=== PATIENT | female | born 1940 | race Caucasian/White ===

== ENCOUNTER 2023-11-14 17:20 | Inpatient (IN) | payer MEDICARE ==
[~2023-11-14] VITALS: Ht 162.6 cm; Wt 84.8 kg
[2023-11-14] MEDS ORDERED: MORPHINE SULFATE 2 MG/1 ML DISP.SYRIN IV ONE (18:15)
[2023-11-14] MEDS ORDERED: ONDANSETRON 4 MG/2 ML VIAL IV ONE (18:15)
[2023-11-14 18:46] LABS: CALCIUM 9.4 mg/dL (8.5-10.1); CREATININE 0.9 mg/dL (0.6-1.3); POTASSIUM 3.6 mmol/L (3.5-5.1)
[2023-11-14 18:47] LABS: BASOPHILS # (AUTO) 0.1 K/UL (0.0-0.2); BASOPHILS % (AUTO) 0.5 % (0.0-2.0); EOSINOPHILS % (AUTO) 0.2 % (0.0-7.0); HEMATOCRIT 46.2 % (31.2-41.9); HEMOGLOBIN 15.1 g/dL (10.9-14.3); LYMPHOCYTES # (AUTO) 0.6 K/uL (0.8-4.8); LYMPHOCYTES % (AUTO) 4.6 % (20.5-51.5); MEAN CORPUSCULAR HEMOGLOBIN 30.1 uug (24.7-32.8); MEAN CORPUSCULAR HGB CONC 33 g/dL (32.3-35.6); MEAN CORPUSCULAR VOLUME 92.2 fL (75.5-95.3); MONOCYTES # (AUTO) 0.4 K/uL (0.1-1.30); NEUTROPHILS # (AUTO) 12.8 K/uL (1.8-8.9); NEUTROPHILS % (AUTO) 91.7 % (38.5-71.5); PLATELET COUNT (AUTO) 242 K/uL (179-408); RED BLOOD CELL COUNT(AUTO) 5.01 MIL/uL (3.63-4.92); RED CELL DISTRIBUTION WIDTH 14.2 % (12.3-17.7)
[2023-11-14 18:55] LABS: DIFFERENTIAL COMMENT 1
[2023-11-14 18:57] LABS: ALBUMIN 3.3 g/dL (3.4-5.0); BILIRUBIN,DIRECT 0.2 mg/dL (0.0-0.2); BILIRUBIN,TOTAL 0.5 mg/dL (0.2-1.0); TOTAL PROTEIN, SERUM 7.9 g/dL (6.4-8.2)
[2023-11-14] MEDS ORDERED: HYDROMORPHONE 1 MG/1 ML DISP.SYRIN IV ONE ×2 (19:00→20:30)
[2023-11-14] MEDS ORDERED: ONDANSETRON 4 MG/2 ML VIAL ONE (19:25)
[2023-11-14] MEDS ORDERED: HYDROMORPHONE 1 MG/1 ML DISP.SYRIN ONE ×2 (19:26→21:21)
[2023-11-14] MEDS ORDERED: CLONIDINE HCL 0.1 MG TABLET PO ONE (20:15)
[2023-11-14] MEDS ORDERED: CLONIDINE HCL 0.1 MG TABLET ONE (20:20)
[2023-11-14] MEDS ORDERED: MORPHINE SULFATE 2 MG/1 ML DISP.SYRIN IV PRN (21:00)
[2023-11-14] MEDS ORDERED: MAGNESIUM HYDROXIDE 30 ML LIQUID UDC PO PRN (21:00)
[2023-11-14] MEDS ORDERED: ACETAMINOPHEN 325 MG TABLET PO PRN (21:00)
[2023-11-14] MEDS ORDERED: REMEDY ESSENTIAL ZINC PASTE 113 GM TP PRN (21:00)
[2023-11-14] MEDS ORDERED: DOCUSATE SODIUM 100 MG CAPSULE PO ONE (22:34)
[2023-11-15] MEDS ORDERED: ONDANSETRON 4 MG/2 ML VIAL ONE ×2 (04:45→11:41)
[2023-11-15] MEDS ORDERED: ONDANSETRON 4 MG/2 ML VIAL IV PRN (04:45)
[2023-11-15] MEDS ORDERED: DOCUSATE SODIUM 100 MG CAPSULE PO ONE (04:45)
[2023-11-15] MEDS ORDERED: HYDROMORPHONE 1 MG/1 ML DISP.SYRIN IV PRN (04:45)
[2023-11-15] MEDS ORDERED: HYDROMORPHONE 1 MG/1 ML DISP.SYRIN ONE (04:46)
[2023-11-15] MEDS: DOCUSATE SODIUM 250 MG CAPSULE PO SCH ×2 (04:54→21:00)
[2023-11-15] MEDS: ONDANSETRON 4 MG/2 ML VIAL IV PRN ×2 (05:42→11:51)
[2023-11-15 06:30] LABS: BASOPHILS # (AUTO) 0.1 K/UL (0.0-0.2); BASOPHILS % (AUTO) 0.7 % (0.0-2.0); EOSINOPHILS % (AUTO) 0.3 % (0.0-7.0); HEMATOCRIT 41.2 % (31.2-41.9); HEMOGLOBIN 13.6 g/dL (10.9-14.3); LYMPHOCYTES # (AUTO) 1.4 K/uL (0.8-4.8); LYMPHOCYTES % (AUTO) 10.5 % (20.5-51.5); MEAN CORPUSCULAR HEMOGLOBIN 30.7 uug (24.7-32.8); MEAN CORPUSCULAR HGB CONC 33 g/dL (32.3-35.6); MEAN CORPUSCULAR VOLUME 93.3 fL (75.5-95.3); MONOCYTES # (AUTO) 1.1 K/uL (0.1-1.30); MONOCYTES % (AUTO) 7.8 % (0.0-11.0); NEUTROPHILS % (AUTO) 80.7 % (38.5-71.5); PLATELET COUNT (AUTO) 216 K/uL (179-408); RED BLOOD CELL COUNT(AUTO) 4.42 MIL/uL (3.63-4.92); RED CELL DISTRIBUTION WIDTH 13.9 % (12.3-17.7); WHITE BLOOD COUNT (AUTO) 13.7 K/uL (3.8-11.8)
[2023-11-15 06:46] LABS: CARBON DIOXIDE 26 mmol/L (21-32); CHLORIDE 105 mmol/L (98-107); CREATININE 0.9 mg/dL (0.6-1.3); DIFFERENTIAL COMMENT 1; GLUCOSE 167 mg/dL (74-106); PHOSPHOROUS 4.3 mg/dL (2.5-4.9); POTASSIUM 4.1 mmol/L (3.5-5.1); SODIUM SERUM 140 mmol/L (136-145); UREA NITROGEN, BLOOD 20 mg/dL (7-18)
[2023-11-15] MEDS ORDERED: MORPHINE SULFATE 2 MG/1 ML DISP.SYRIN ONE ×3 (11:42→20:38)
[2023-11-15] MEDS: MORPHINE SULFATE 2 MG/1 ML DISP.SYRIN IV PRN ×3 (11:52→20:42)
[2023-11-15] MEDS ORDERED: ASPIRIN 325 MG TABLET PO ONE (13:30)
[2023-11-15] MEDS ORDERED: ASPIRIN 325 MG TABLET ONE (14:51)
[2023-11-15] MEDS ORDERED: ACETAMINOPHEN 325 MG TABLET ONE (15:04)
[2023-11-15] MEDS ORDERED: MORPHINE SULFATE 4 MG/1 ML DISP.SYRIN ONE (20:35)
[2023-11-16] MEDS ORDERED: MORPHINE SULFATE 2 MG/1 ML DISP.SYRIN ONE ×2 (00:54→06:14)
[2023-11-16] MEDS: MORPHINE SULFATE 2 MG/1 ML DISP.SYRIN IV PRN ×2 (01:03→06:25)
[2023-11-16] MEDS ORDERED: MIDAZOLAM HCL 2 MG/2 ML VIAL ONE (07:59)
[2023-11-16] MEDS ORDERED: FENTANYL CITRATE 250 MCG/5 ML AMPUL ONE (07:59)
[2023-11-16] MEDS ORDERED: ROCURONIUM BROMIDE 50 MG/5 ML VIAL ONE (08:00)
[2023-11-16] MEDS ORDERED: HYDROMORPHONE 2 MG/1 ML DISP.SYRIN ONE (08:00)
[2023-11-16] MEDS ORDERED: FAMOTIDINE. 20 MG/2 ML VIAL IV ONE (08:00)
[2023-11-16 08:04] LABS: *BLOOD, URINE 2+ (NEGATIVE); *CLARITY,URINE CLEAR (CLEAR); *COLOR,URINE YELLOW (YELLOW); *KETONES,URINE NEGATIVE (NEGATIVE); *PROTEIN,URINE 1+ (NEGATIVE); LEUKOCYTE ESTERASE ,URINE NEGATIVE (NEGATIVE); NITRITE, URINE NEGATIVE (NEGATIVE); PH,URINE 5.5 (5.0-8.0); UGLUCOSE NEGATIVE (NEGATIVE)
[2023-11-16 08:09] LABS: *BILIRUBIN,URIN 1+ (NEGATIVE)
[2023-11-16 08:12] LABS: BASOPHILS % (AUTO) 0.4 % (0.0-2.0); EOSINOPHILS # (AUTO) 0.1 K/uL (0.0-0.7); EOSINOPHILS % (AUTO) 1.4 % (0.0-7.0); HEMATOCRIT 42.4 % (31.2-41.9); LYMPHOCYTES % (AUTO) 9.1 % (20.5-51.5); MEAN CORPUSCULAR HEMOGLOBIN 30.8 uug (24.7-32.8); MEAN CORPUSCULAR HGB CONC 33 g/dL (32.3-35.6); MEAN CORPUSCULAR VOLUME 93.7 fL (75.5-95.3); MONOCYTES % (AUTO) 9.3 % (0.0-11.0); NEUTROPHILS # (AUTO) 8.4 K/uL (1.8-8.9); NEUTROPHILS % (AUTO) 79.8 % (38.5-71.5); PLATELET COUNT (AUTO) 199 K/uL (179-408); RED BLOOD CELL COUNT(AUTO) 4.53 MIL/uL (3.63-4.92); RED CELL DISTRIBUTION WIDTH 14.1 % (12.3-17.7); WHITE BLOOD COUNT (AUTO) 10.5 K/uL (3.8-11.8)
[2023-11-16 08:16] LABS: BACTERIA,URINE NONE SEEN /HPF (NONE SEEN); SQUAMOUS EPITHELIAL CELL,UR FEW /HPF (NONE SEEN)
[2023-11-16 08:17] LABS: DIFFERENTIAL COMMENT 1
[2023-11-16 08:21] LABS: POTASSIUM 4.4 mmol/L (3.5-5.1)
[2023-11-16] MEDS: ASPIRIN 81 MG TAB.CHEW PO SCH (09:00)
[2023-11-16] MEDS ORDERED: VANCOMYCIN 1000 MG VIAL ONE (09:43)
[2023-11-16] MEDS ORDERED: LIDOCAINE-MPF 2% 5 ML VIAL ONE (10:13)
[2023-11-16] MEDS ORDERED: PROPOFOL 200 MG/20 ML BOTTLE ONE (10:13)
[2023-11-16] MEDS ORDERED: EPHEDRINE SULFATE 50 MG/ML AMPUL ONE (10:13)
[2023-11-16] MEDS ORDERED: NEOSTIGMINE METHYLSULFATE 10 MG/10 ML VIAL ONE (10:13)
[2023-11-16] MEDS ORDERED: METOCLOPRAMIDE HCL 10 MG/2 ML VIAL ONE (10:13)
[2023-11-16] MEDS ORDERED: CEFAZOLIN 1 G VIAL ONE (10:13)
[2023-11-16] MEDS ORDERED: ONDANSETRON 4 MG/2 ML VIAL ONE (10:13)
[2023-11-16] MEDS ORDERED: GLYCOPYRROLATE 0.2 MG/ML VIAL ONE (10:13)
[2023-11-16] MEDS ORDERED: IV D5W-0.45% NS +20 KCL 1,000 ML IV PRN (12:15)
[2023-11-16 13:00] VITALS: BP 154/69; TEMP 97.8; O2SAT 97
[2023-11-16 16:30] VITALS: O2SAT 97
[2023-11-16] MEDS: CEFAZOLIN 1 G in IV DEXTROSE 5% 50 ML IV SCH (17:04)
[2023-11-16] MEDS: MORPHINE SULFATE 4 MG/1 ML DISP.SYRIN IV PRN (17:48)
[2023-11-16 18:00] VITALS: BP 101/59; TEMP 98.4; O2SAT 98
[2023-11-16 20:15] VITALS: BP 133/82; TEMP 98.1; O2SAT 76; O2SAT 96
[2023-11-16] MEDS: DOCUSATE SODIUM 250 MG CAPSULE PO SCH (21:40)
[2023-11-17] VITALS (8 sets, daily range): BP systolic 121–156; BP diastolic 73–92; TEMP 92–98.5; O2SAT 96–98
[2023-11-17] MEDS: CEFAZOLIN 1 G in IV DEXTROSE 5% 50 ML IV SCH (01:35)
[2023-11-17 07:04] LABS: BASOPHILS # (AUTO) 0.1 K/UL (0.0-0.2); BASOPHILS % (AUTO) 0.4 % (0.0-2.0); EOSINOPHILS # (AUTO) 0.1 K/uL (0.0-0.7); EOSINOPHILS % (AUTO) 0.4 % (0.0-7.0); HEMATOCRIT 33.4 % (31.2-41.9); HEMOGLOBIN 10.8 g/dL (10.9-14.3); LYMPHOCYTES % (AUTO) 11.3 % (20.5-51.5); MEAN CORPUSCULAR HEMOGLOBIN 30.5 uug (24.7-32.8); MEAN CORPUSCULAR HGB CONC 33 g/dL (32.3-35.6); MONOCYTES # (AUTO) 1.6 K/uL (0.1-1.30); MONOCYTES % (AUTO) 9.3 % (0.0-11.0); NEUTROPHILS # (AUTO) 13.6 K/uL (1.8-8.9); NEUTROPHILS % (AUTO) 78.6 % (38.5-71.5); PLATELET COUNT (AUTO) 218 K/uL (179-408); RED BLOOD CELL COUNT(AUTO) 3.55 MIL/uL (3.63-4.92); WHITE BLOOD COUNT (AUTO) 17.3 K/uL (3.8-11.8)
[2023-11-17 07:20] LABS: DIFFERENTIAL COMMENT 1
[2023-11-17 07:26] LABS: CALCIUM 8.4 mg/dL (8.5-10.1); CARBON DIOXIDE 26 mmol/L (21-32); CHLORIDE 104 mmol/L (98-107); CREATININE 1.9 mg/dL (0.6-1.3); GLUCOSE 178 mg/dL (74-106); POTASSIUM 4.5 mmol/L (3.5-5.1); SODIUM SERUM 138 mmol/L (136-145); UREA NITROGEN, BLOOD 33 mg/dL (7-18)
[2023-11-17] MEDS: ASPIRIN 81 MG TAB.CHEW PO SCH (08:34)
[2023-11-17] MEDS ORDERED: IV NORMAL SALINE 1000 ML BAG IV PRN (16:15)
[2023-11-17] MEDS: MORPHINE SULFATE 4 MG/1 ML DISP.SYRIN IV PRN (16:47)
[2023-11-17] MEDS: IV NS 1000 ML 1,000 ML IV PRN (17:14)
[2023-11-17] MEDS: DOCUSATE SODIUM 250 MG CAPSULE PO SCH (21:12)
[2023-11-18] MEDS: IV NS 1000 ML 1,000 ML IV PRN ×2 (03:54→18:29)
[2023-11-18 04:32] VITALS: BP 146/63; TEMP 98.4; O2SAT 92
[2023-11-18 07:39] LABS: BASOPHILS # (AUTO) 0.1 K/UL (0.0-0.2); BASOPHILS % (AUTO) 0.6 % (0.0-2.0); EOSINOPHILS # (AUTO) 0.1 K/uL (0.0-0.7); EOSINOPHILS % (AUTO) 0.5 % (0.0-7.0); HEMATOCRIT 27.3 % (31.2-41.9); HEMOGLOBIN 9.2 g/dL (10.9-14.3); LYMPHOCYTES % (AUTO) 8.2 % (20.5-51.5); MEAN CORPUSCULAR HEMOGLOBIN 31.4 uug (24.7-32.8); MEAN CORPUSCULAR HGB CONC 34 g/dL (32.3-35.6); MEAN CORPUSCULAR VOLUME 93.4 fL (75.5-95.3); MONOCYTES # (AUTO) 1.1 K/uL (0.1-1.30); MONOCYTES % (AUTO) 8.7 % (0.0-11.0); NEUTROPHILS # (AUTO) 10.5 K/uL (1.8-8.9); PLATELET COUNT (AUTO) 174 K/uL (179-408); RED BLOOD CELL COUNT(AUTO) 2.93 MIL/uL (3.63-4.92); RED CELL DISTRIBUTION WIDTH 13.6 % (12.3-17.7); WHITE BLOOD COUNT (AUTO) 12.8 K/uL (3.8-11.8)
[2023-11-18 08:00] VITALS: BP 148/76; TEMP 98.2; O2SAT 99
[2023-11-18 08:02] LABS: DIFFERENTIAL COMMENT 1
[2023-11-18 08:05] LABS: ALANINE AMINOTRANSFERASE 10 U/L (14-59); ALBUMIN 2.1 g/dL (3.4-5.0); ALKALINE PHOSPHATASE 81 U/L (50-136); ASPARTATE AMINOTRANSFERASE 12 U/L (15-37); BILIRUBIN,TOTAL 0.7 mg/dL (0.2-1.0); CALCIUM 8.3 mg/dL (8.5-10.1); CARBON DIOXIDE 26 mmol/L (21-32); CHLORIDE 106 mmol/L (98-107); CREATINE KINASE, TOTAL 85 U/L (26-192); CREATININE 1.3 mg/dL (0.6-1.3); GLUCOSE 149 mg/dL (74-106); MAGNESIUM 2.2 mg/dL (1.8-2.4); PHOSPHOROUS 2.9 mg/dL (2.5-4.9); POTASSIUM 4.7 mmol/L (3.5-5.1); SODIUM SERUM 138 mmol/L (136-145); TOTAL PROTEIN, SERUM 5.9 g/dL (6.4-8.2); UREA NITROGEN, BLOOD 33 mg/dL (7-18)
[2023-11-18] MEDS: HYDROCODONE/APAP 10-325 MG TABLET PO PRN ×2 (08:42→20:21)
[2023-11-18] MEDS: ASPIRIN 81 MG TAB.CHEW PO SCH (08:43)
[2023-11-18] MEDS ORDERED: IOHEXOL 350 100 ML INFUS..BTL ONE (12:16)
[2023-11-18] MEDS ORDERED: SWABABLE VALVE TRANSFER SET EA MC ONE (12:16)
[2023-11-18] MEDS ORDERED: IV NORMAL SALINE 250 ML IV ONE (12:17)
[2023-11-18 16:04] VITALS: BP 159/79; TEMP 98.6; O2SAT 98
[2023-11-18 20:00] VITALS: BP 144/72; TEMP 98.2; O2SAT 98
[2023-11-18] MEDS: DOCUSATE SODIUM 250 MG CAPSULE PO SCH (20:20)
[2023-11-19 04:00] VITALS: BP 147/69; TEMP 98.4; O2SAT 97
[2023-11-19 07:57] LABS: BASOPHILS # (AUTO) 0.1 K/UL (0.0-0.2); BASOPHILS % (AUTO) 0.6 % (0.0-2.0); EOSINOPHILS # (AUTO) 0.2 K/uL (0.0-0.7); EOSINOPHILS % (AUTO) 2.2 % (0.0-7.0); HEMATOCRIT 26.3 % (31.2-41.9); HEMOGLOBIN 8.8 g/dL (10.9-14.3); LYMPHOCYTES # (AUTO) 1.3 K/uL (0.8-4.8); LYMPHOCYTES % (AUTO) 12.1 % (20.5-51.5); MEAN CORPUSCULAR HEMOGLOBIN 31.5 uug (24.7-32.8); MEAN CORPUSCULAR HGB CONC 34 g/dL (32.3-35.6); MONOCYTES % (AUTO) 9.6 % (0.0-11.0); NEUTROPHILS # (AUTO) 8.1 K/uL (1.8-8.9); NEUTROPHILS % (AUTO) 75.5 % (38.5-71.5); PLATELET COUNT (AUTO) 193 K/uL (179-408); RED CELL DISTRIBUTION WIDTH 13.8 % (12.3-17.7); WHITE BLOOD COUNT (AUTO) 10.7 K/uL (3.8-11.8)
[2023-11-19 08:15] LABS: DIFFERENTIAL COMMENT 1
[2023-11-19 08:22] LABS: CALCIUM 8.7 mg/dL (8.5-10.1); CARBON DIOXIDE 28 mmol/L (21-32); CHLORIDE 107 mmol/L (98-107); CREATININE 0.9 mg/dL (0.6-1.3); GLUCOSE 100 mg/dL (74-106); POTASSIUM 4.1 mmol/L (3.5-5.1); SODIUM SERUM 140 mmol/L (136-145); UREA NITROGEN, BLOOD 27 mg/dL (7-18)
[2023-11-19] MEDS: ASPIRIN 81 MG TAB.CHEW PO SCH (08:31)
[2023-11-19] MEDS: IV NS 1000 ML 1,000 ML IV PRN ×2 (08:36→18:56)
[2023-11-19 09:09] LABS: PTH, INTACT 54 pg/mL (15-65)
[2023-11-19] MEDS: HYDROCODONE/APAP 10-325 MG TABLET PO PRN (09:40)
[2023-11-19 16:33] VITALS: O2SAT 98
[2023-11-19 20:19] VITALS: BP 153/77; TEMP 97.5; O2SAT 99
[2023-11-19] MEDS: DOCUSATE SODIUM 250 MG CAPSULE PO SCH (21:00)
[2023-11-19] MEDS: DOCUSATE SODIUM 100 MG/10 ML LIQUID UDC PO SCH (21:34)
[2023-11-20] MEDS: HYDROCODONE/APAP 10-325 MG TABLET PO PRN ×2 (04:17→13:45)
[2023-11-20 04:20] VITALS: BP 146/83; TEMP 98; O2SAT 98
[2023-11-20] MEDS: IV NS 1000 ML 1,000 ML IV PRN (05:23)
[2023-11-20 08:12] LABS: BASOPHILS % (AUTO) 0.4 % (0.0-2.0); EOSINOPHILS # (AUTO) 0.3 K/uL (0.0-0.7); EOSINOPHILS % (AUTO) 2.6 % (0.0-7.0); HEMATOCRIT 25.9 % (31.2-41.9); HEMOGLOBIN 8.8 g/dL (10.9-14.3); LYMPHOCYTES # (AUTO) 1.3 K/uL (0.8-4.8); LYMPHOCYTES % (AUTO) 12.5 % (20.5-51.5); MEAN CORPUSCULAR HEMOGLOBIN 31.5 uug (24.7-32.8); MEAN CORPUSCULAR HGB CONC 34 g/dL (32.3-35.6); MEAN CORPUSCULAR VOLUME 93.3 fL (75.5-95.3); MONOCYTES % (AUTO) 9.8 % (0.0-11.0); NEUTROPHILS # (AUTO) 7.7 K/uL (1.8-8.9); NEUTROPHILS % (AUTO) 74.7 % (38.5-71.5); PLATELET COUNT (AUTO) 224 K/uL (179-408); RED BLOOD CELL COUNT(AUTO) 2.78 MIL/uL (3.63-4.92); RED CELL DISTRIBUTION WIDTH 13.5 % (12.3-17.7); WHITE BLOOD COUNT (AUTO) 10.3 K/uL (3.8-11.8)
[2023-11-20 08:23] LABS: CALCIUM 8.4 mg/dL (8.5-10.1); CARBON DIOXIDE 28 mmol/L (21-32); CHLORIDE 105 mmol/L (98-107); CREATININE 0.9 mg/dL (0.6-1.3); GLUCOSE 114 mg/dL (74-106); POTASSIUM 3.9 mmol/L (3.5-5.1); UREA NITROGEN, BLOOD 22 mg/dL (7-18)
[2023-11-20 08:24] LABS: DIFFERENTIAL COMMENT 1
[2023-11-20] MEDS: ASPIRIN 81 MG TAB.CHEW PO SCH (10:25)
[2023-11-20] MEDS: DOCUSATE SODIUM 100 MG/10 ML LIQUID UDC PO SCH (10:26)
[2023-11-20] MEDS ORDERED: HYDR-3980 PO (12:19)
[2023-11-20] MEDS ORDERED: DOCU50LI PO (12:19)
[2023-11-20] MEDS ORDERED: ACET325T53 PO (12:19)
[2023-11-20] MEDS ORDERED: ASPI81TA31 PO (12:19)
[2023-11-20] MEDS ORDERED: Morphine Sulfate Inj IV (12:19)
[2023-11-20] MEDS ORDERED: DOCU250C14 PO (12:19)
[2023-11-20] MEDS ORDERED: MAGN400O6 PO (12:19)
[2023-11-20 13:08] VITALS: BP 163/80; TEMP 97.8
[2023-11-20 17:48] VITALS: BP 162/71; TEMP 98.4
[2023-11-20] MEDS ORDERED: ONDA4VIA52 IV (22:44)
[2023-11-22 07:06] LABS: A/G RATIO 0.8 (0.7-1.7); ALBUMIN 2.4 g/dL (2.9-4.4); ALPHA-1-GLOBULIN 0.5 g/dL (0.0-0.4); ALPHA-2-GLOBULIN 0.8 g/dL (0.4-1.0); GAMMA GLOBULIN 0.8 g/dL (0.4-1.8); M-SPIKE Not Observed g/dL (Not Observed)
== END 2023-11-20 19:00 | DRG 981 ==
LOC: ER 17:22 → TRANSITION 20:30 → MEDSURG3 11-16 13:07
PROVIDERS: ADMIT Internal Medicine; ATTEND Internal Medicine
PROC: 0QS606Z Reposition Right Upper Femur with Intramedullary Internal Fixation Device, Open Approach (ICD-10-PCS; principal; 2023-11-16)
DX: I63.89 Other cerebral infarction (principal); N17.0 Acute kidney failure with tubular necrosis; S72.141A Displaced intertrochanteric fracture of right femur, initial encounter for closed fracture; E44.0 Moderate protein-calorie malnutrition; R65.10 Systemic inflammatory response syndrome (SIRS) of non-infectious origin without acute organ dysfunction; G81.91 Hemiplegia, unspecified affecting right dominant side; W18.30XA Fall on same level, unspecified, initial encounter; Y92.89 Other specified places as the place of occurrence of the external cause; E88.09 Other disorders of plasma-protein metabolism, not elsewhere classified; R47.1 Dysarthria and anarthria; Z86.73 Personal history of transient ischemic attack (TIA), and cerebral infarction without residual deficits; E66.9 Obesity, unspecified; Z68.32 Body mass index [BMI] 32.0-32.9, adult; I10 Essential (primary) hypertension; R29.706 NIHSS score 6
CPT/HCPCS: 36415; 70450; 70496; 71045; 72170; 73503; 83735; 83970; 84100; 84155; 84165; 85025; 85730; 93005; 93307; 93880; A4649; A6209; C1713; G0378; J0690; J1170; J2250; J2270; J2405; J2765; J3010; J3370; J3490; J7040; Q9967

== ENCOUNTER 2023-11-20 20:05 | Inpatient (IN) | payer MEDICARE ==
[~2023-11-20] VITALS: Ht 162.6 cm; Wt 91.2 kg
[~2023-11-20 20:05] MED LIST: ACET325T53 PO; ASPI81TA31 PO; DOCU250C14 PO; DOCU50LI PO; HYDR-3980 PO; MAGN400O6 PO; Morphine Sulfate Inj IV
[2023-11-20 20:30] VITALS: BP 164/74; TEMP 98.8; O2SAT 98
[2023-11-20] MEDS ORDERED: OXYCODONE HCL 5 MG TABLET PO PRN (21:45)
[2023-11-20] MEDS: HYDROCODONE/APAP 5-325MG TABLET PO PRN (22:14)
[2023-11-20] MEDS ORDERED: ONDA4VIA52 IV (22:44)
[2023-11-21 04:00] VITALS: BP 165/81; TEMP 98.6; O2SAT 100
[2023-11-21] MEDS: HYDROCODONE/APAP 5-325MG TABLET PO PRN ×2 (08:56→20:55)
[2023-11-21 09:57] VITALS: BP 162/85; TEMP 97.8; O2SAT 99
[2023-11-21] MEDS ORDERED: MAGNESIUM HYDROXIDE 30 ML LIQUID UDC PO ONE (14:45)
[2023-11-21] MEDS ORDERED: ONDANSETRON 4 MG/2 ML VIAL IV PRN (15:00)
[2023-11-21] MEDS ORDERED: ACETAMINOPHEN 325 MG TABLET-SA PATIENTS-PAIN ONLY PO PRN (15:00)
[2023-11-21] MEDS ORDERED: HYDROCODONE/APAP 10-325 MG TABLET PO PRN (15:00)
[2023-11-21] MEDS ORDERED: CLONIDINE HCL 0.1 MG TABLET PO ONE (17:30)
[2023-11-21 20:00] VITALS: BP 140/77; TEMP 98.4; O2SAT 97
[2023-11-21] MEDS: MAGNESIUM HYDROXIDE 30 ML LIQUID UDC PO PRN (20:54)
[2023-11-21] MEDS: DOCUSATE SODIUM 250 MG CAPSULE PO SCH (20:54)
[2023-11-22 04:15] VITALS: BP 157/76; TEMP 98.1; O2SAT 100
[2023-11-22] MEDS: HYDROCODONE/APAP 5-325MG TABLET PO PRN ×3 (04:40→20:49)
[2023-11-22 06:54] LABS: BASOPHILS # (AUTO) 0.1 K/UL (0.0-0.2); BASOPHILS % (AUTO) 0.8 % (0.0-2.0); EOSINOPHILS # (AUTO) 0.4 K/uL (0.0-0.7); EOSINOPHILS % (AUTO) 3.4 % (0.0-7.0); HEMOGLOBIN 8.9 g/dL (10.9-14.3); LYMPHOCYTES # (AUTO) 1.4 K/uL (0.8-4.8); LYMPHOCYTES % (AUTO) 12.7 % (20.5-51.5); MEAN CORPUSCULAR HEMOGLOBIN 32.3 uug (24.7-32.8); MEAN CORPUSCULAR HGB CONC 34 g/dL (32.3-35.6); MEAN CORPUSCULAR VOLUME 94.4 fL (75.5-95.3); MONOCYTES # (AUTO) 0.9 K/uL (0.1-1.30); MONOCYTES % (AUTO) 8.5 % (0.0-11.0); NEUTROPHILS # (AUTO) 7.9 K/uL (1.8-8.9); NEUTROPHILS % (AUTO) 74.6 % (38.5-71.5); PLATELET COUNT (AUTO) 150 K/uL (179-408); RED BLOOD CELL COUNT(AUTO) 2.75 MIL/uL (3.63-4.92); RED CELL DISTRIBUTION WIDTH 13.7 % (12.3-17.7); WHITE BLOOD COUNT (AUTO) 10.7 K/uL (3.8-11.8)
[2023-11-22 07:10] LABS: CALCIUM 8.8 mg/dL (8.5-10.1); CARBON DIOXIDE 28 mmol/L (21-32); CHLORIDE 103 mmol/L (98-107); CREATININE 0.7 mg/dL (0.6-1.3); GLUCOSE 122 mg/dL (74-106); POTASSIUM 3.9 mmol/L (3.5-5.1); SODIUM SERUM 136 mmol/L (136-145); UREA NITROGEN, BLOOD 17 mg/dL (7-18)
[2023-11-22 07:13] LABS: DIFFERENTIAL COMMENT 1
[2023-11-22 08:00] VITALS: BP 148/70; TEMP 98.1; O2SAT 94
[2023-11-22] MEDS ORDERED: DOCUSATE SODIUM 100 MG/10 ML LIQUID UDC PO SCH (09:00)
[2023-11-22] MEDS: DOCUSATE SODIUM 250 MG CAPSULE PO SCH ×2 (09:01→20:49)
[2023-11-22] MEDS: MIRALAX 17 GM POWD.PACK PO SCH (09:01)
[2023-11-22] MEDS: ASPIRIN 81 MG TAB.CHEW PO SCH (09:01)
[2023-11-22 14:18] VITALS: BP 130/80; TEMP 98; O2SAT 95
[2023-11-22] MEDS: ARGININE/GLUTAMINE/CALCIUM BMB 1 EACH POWD.PACK PO SCH (16:27)
[2023-11-22 21:00] VITALS: BP 150/77; TEMP 98.4; O2SAT 97
[2023-11-22 22:14] VITALS: O2SAT 96
[2023-11-23] MEDS: ACETAMINOPHEN 325 MG TABLET PO PRN (04:57)
[2023-11-23 07:31] VITALS: BP 150/80; TEMP 98; O2SAT 95
[2023-11-23 08:17] VITALS: BP 148/88; TEMP 98; O2SAT 95
[2023-11-23] MEDS: MAGNESIUM HYDROXIDE 30 ML LIQUID UDC PO PRN (08:38)
[2023-11-23] MEDS: ARGININE/GLUTAMINE/CALCIUM BMB 1 EACH POWD.PACK PO SCH ×2 (08:39→16:11)
[2023-11-23] MEDS: ASPIRIN 81 MG TAB.CHEW PO SCH (08:39)
[2023-11-23] MEDS: DOCUSATE SODIUM 250 MG CAPSULE PO SCH ×2 (08:39→20:20)
[2023-11-23] MEDS: MIRALAX 17 GM POWD.PACK PO SCH (08:39)
[2023-11-23 12:51] VITALS: BP 208/81; TEMP 98; O2SAT 95
[2023-11-23] MEDS: HYDROCODONE/APAP 5-325MG TABLET PO PRN ×2 (12:52→20:21)
[2023-11-23] MEDS: TRAMADOL HCL 50 MG TABLET PO SCH (13:05)
[2023-11-23] MEDS: hydrALAZINE HCL 25 MG TABLET PO PRN (13:19)
[2023-11-23 13:59] VITALS: BP 165/77; TEMP 97.9; O2SAT 95
[2023-11-23 16:08] VITALS: BP 149/76; TEMP 97.6; O2SAT 97
[2023-11-23 20:38] VITALS: BP 157/83; TEMP 97.7; O2SAT 93
[2023-11-24] MEDS: HYDROCODONE/APAP 5-325MG TABLET PO PRN ×2 (00:17→21:11)
[2023-11-24 04:35] VITALS: BP 165/85; TEMP 97.9; O2SAT 95
[2023-11-24 08:00] VITALS: BP 183/99; TEMP 97.9; O2SAT 96
[2023-11-24] MEDS: ARGININE/GLUTAMINE/CALCIUM BMB 1 EACH POWD.PACK PO SCH ×2 (09:00→17:23)
[2023-11-24] MEDS: ASPIRIN 81 MG TAB.CHEW PO SCH (09:13)
[2023-11-24] MEDS: MIRALAX 17 GM POWD.PACK PO SCH (09:13)
[2023-11-24] MEDS: DOCUSATE SODIUM 250 MG CAPSULE PO SCH ×2 (09:13→20:37)
[2023-11-24] MEDS: TRAMADOL HCL 50 MG TABLET PO SCH (09:16)
[2023-11-24 16:43] VITALS: BP 150/76; TEMP 98.2; O2SAT 96
[2023-11-24 20:39] VITALS: BP 153/82; TEMP 98.4; O2SAT 92
[2023-11-25 04:35] VITALS: BP 158/67; TEMP 97.5; O2SAT 94
[2023-11-25] MEDS: hydrALAZINE HCL 25 MG TABLET PO PRN (05:27)
[2023-11-25] MEDS: HYDROCODONE/APAP 5-325MG TABLET PO PRN ×2 (07:14→20:00)
[2023-11-25 07:45] VITALS: BP 165/69; TEMP 97.5; O2SAT 94
[2023-11-25] MEDS: TRAMADOL HCL 50 MG TABLET PO SCH (08:20)
[2023-11-25] MEDS: MIRALAX 17 GM POWD.PACK PO SCH (08:20)
[2023-11-25] MEDS: ARGININE/GLUTAMINE/CALCIUM BMB 1 EACH POWD.PACK PO SCH ×2 (08:20→16:05)
[2023-11-25] MEDS: ASPIRIN 81 MG TAB.CHEW PO SCH (08:20)
[2023-11-25] MEDS: DOCUSATE SODIUM 250 MG CAPSULE PO SCH ×2 (08:20→20:00)
[2023-11-25 16:43] VITALS: BP 159/76; TEMP 98; O2SAT 95
[2023-11-25 20:35] VITALS: BP 151/73; TEMP 98.3; O2SAT 94
[2023-11-26] VITALS (7 sets, daily range): BP systolic 146–172; BP diastolic 72–85; TEMP 97.7–98.4; O2SAT 94–96
[2023-11-26] MEDS: ACETAMINOPHEN 325 MG TABLET PO PRN ×2 (05:12→17:11)
[2023-11-26] MEDS: hydrALAZINE HCL 25 MG TABLET PO PRN (06:01)
[2023-11-26] MEDS: ASPIRIN 81 MG TAB.CHEW PO SCH (09:30)
[2023-11-26] MEDS: TRAMADOL HCL 50 MG TABLET PO SCH (09:30)
[2023-11-26] MEDS: MIRALAX 17 GM POWD.PACK PO SCH (09:31)
[2023-11-26] MEDS: DOCUSATE SODIUM 250 MG CAPSULE PO SCH ×2 (09:31→20:28)
[2023-11-26] MEDS: ARGININE/GLUTAMINE/CALCIUM BMB 1 EACH POWD.PACK PO SCH ×2 (09:31→17:12)
[2023-11-27] MEDS: ACETAMINOPHEN 325 MG TABLET PO PRN (00:10)
[2023-11-27 04:30] VITALS: BP 176/83; TEMP 97.9; O2SAT 95
[2023-11-27] MEDS: hydrALAZINE HCL 25 MG TABLET PO PRN ×2 (05:17→18:45)
[2023-11-27] MEDS: HYDROCODONE/APAP 5-325MG TABLET PO PRN ×3 (05:43→23:48)
[2023-11-27 08:31] VITALS: BP 158/78; TEMP 98.2; O2SAT 98
[2023-11-27] MEDS: ASPIRIN 81 MG TAB.CHEW PO SCH (08:37)
[2023-11-27] MEDS: TRAMADOL HCL 50 MG TABLET PO SCH (08:37)
[2023-11-27] MEDS: DOCUSATE SODIUM 250 MG CAPSULE PO SCH ×2 (08:38→21:00)
[2023-11-27] MEDS: ARGININE/GLUTAMINE/CALCIUM BMB 1 EACH POWD.PACK PO SCH ×2 (08:38→17:09)
[2023-11-27] MEDS: MIRALAX 17 GM POWD.PACK PO SCH (08:38)
[2023-11-27 17:04] VITALS: BP 172/80; TEMP 98; O2SAT 97
[2023-11-27 20:00] VITALS: BP 144/77; TEMP 98.2; O2SAT 95
[2023-11-28 03:25] VITALS: O2SAT 95
[2023-11-28] MEDS: HYDROCODONE/APAP 5-325MG TABLET PO PRN ×4 (05:55→23:00)
[2023-11-28 07:55] VITALS: BP 140/68; TEMP 98; O2SAT 97
[2023-11-28] MEDS: DOCUSATE SODIUM 250 MG CAPSULE PO SCH ×2 (09:00→20:19)
[2023-11-28] MEDS: MIRALAX 17 GM POWD.PACK PO SCH (09:00)
[2023-11-28] MEDS: TRAMADOL HCL 50 MG TABLET PO SCH (09:13)
[2023-11-28] MEDS: ARGININE/GLUTAMINE/CALCIUM BMB 1 EACH POWD.PACK PO SCH ×2 (09:13→17:40)
[2023-11-28] MEDS: ASPIRIN 81 MG TAB.CHEW PO SCH (09:13)
[2023-11-28 16:00] VITALS: BP 152/60; TEMP 97.7; O2SAT 99
[2023-11-28 18:32] VITALS: O2SAT 99
[2023-11-28 21:26] VITALS: BP 140/63; TEMP 97.8; O2SAT 96
[2023-11-29] MEDS: HYDROCODONE/APAP 5-325MG TABLET PO PRN ×2 (04:25→17:33)
[2023-11-29 04:30] VITALS: BP 151/76; TEMP 97.9; O2SAT 97
[2023-11-29 08:10] VITALS: BP 161/76; TEMP 97.8; O2SAT 99
[2023-11-29] MEDS: TRAMADOL HCL 50 MG TABLET PO SCH (08:21)
[2023-11-29] MEDS: DOCUSATE SODIUM 250 MG CAPSULE PO SCH ×2 (08:43→21:00)
[2023-11-29] MEDS: ASPIRIN 81 MG TAB.CHEW PO SCH (08:43)
[2023-11-29] MEDS: ARGININE/GLUTAMINE/CALCIUM BMB 1 EACH POWD.PACK PO SCH ×2 (08:45→17:40)
[2023-11-29] MEDS: MIRALAX 17 GM POWD.PACK PO SCH (09:00)
[2023-11-29 16:00] VITALS: BP 149/77; TEMP 97.7; O2SAT 99
[2023-11-29 20:00] VITALS: BP 169/85; TEMP 98.3; O2SAT 99
[2023-11-29] MEDS: REMEDY ESSENTIAL ZINC PASTE 113 GM TOP PRN (22:52)
[2023-11-29] MEDS: hydrALAZINE HCL 25 MG TABLET PO PRN (22:53)
[2023-11-30] MEDS: HYDROCODONE/APAP 5-325MG TABLET PO PRN ×4 (02:18→20:33)
[2023-11-30 04:00] VITALS: BP 151/81; TEMP 98.2; O2SAT 95
[2023-11-30] MEDS: hydrALAZINE HCL 25 MG TABLET PO PRN (06:10)
[2023-11-30 07:52] VITALS: BP 152/71; TEMP 97.9; O2SAT 97
[2023-11-30] MEDS: MIRALAX 17 GM POWD.PACK PO SCH (08:16)
[2023-11-30] MEDS: ASPIRIN 81 MG TAB.CHEW PO SCH (08:16)
[2023-11-30] MEDS: ARGININE/GLUTAMINE/CALCIUM BMB 1 EACH POWD.PACK PO SCH ×2 (08:17→16:29)
[2023-11-30] MEDS: DOCUSATE SODIUM 250 MG CAPSULE PO SCH ×2 (08:17→20:33)
[2023-11-30 08:41] LABS: BASOPHILS # (AUTO) 0.1 K/UL (0.0-0.2); BASOPHILS % (AUTO) 0.6 % (0.0-2.0); EOSINOPHILS # (AUTO) 0.3 K/uL (0.0-0.7); EOSINOPHILS % (AUTO) 3.1 % (0.0-7.0); HEMATOCRIT 30.7 % (31.2-41.9); HEMOGLOBIN 10.5 g/dL (10.9-14.3); LYMPHOCYTES # (AUTO) 1.3 K/uL (0.8-4.8); LYMPHOCYTES % (AUTO) 11.9 % (20.5-51.5); MEAN CORPUSCULAR HEMOGLOBIN 31.5 uug (24.7-32.8); MEAN CORPUSCULAR HGB CONC 34 g/dL (32.3-35.6); MEAN CORPUSCULAR VOLUME 92.6 fL (75.5-95.3); MONOCYTES # (AUTO) 0.8 K/uL (0.1-1.30); MONOCYTES % (AUTO) 7.5 % (0.0-11.0); NEUTROPHILS # (AUTO) 8.4 K/uL (1.8-8.9); NEUTROPHILS % (AUTO) 76.9 % (38.5-71.5); PLATELET COUNT (AUTO) 472 K/uL (179-408); RED BLOOD CELL COUNT(AUTO) 3.32 MIL/uL (3.63-4.92); RED CELL DISTRIBUTION WIDTH 14.7 % (12.3-17.7)
[2023-11-30 08:43] LABS: DIFFERENTIAL COMMENT 1
[2023-11-30 09:04] LABS: IRON, SERUM 37 ug/dL (50-175)
[2023-11-30 09:15] LABS: THYROID STIMULATING HORMONE 10.146 mIU/mL (0.358-3.740)
[2023-11-30 09:32] LABS: ALANINE AMINOTRANSFERASE 23 U/L (14-59); ALBUMIN 2.4 g/dL (3.4-5.0); ALKALINE PHOSPHATASE 134 U/L (50-136); ASPARTATE AMINOTRANSFERASE 21 U/L (15-37); BILIRUBIN,TOTAL 0.7 mg/dL (0.2-1.0); CALCIUM 8.7 mg/dL (8.5-10.1); CARBON DIOXIDE 30 mmol/L (21-32); CHLORIDE 100 mmol/L (98-107); CREATININE 0.8 mg/dL (0.6-1.3); GLUCOSE 116 mg/dL (74-106); MAGNESIUM 2.2 mg/dL (1.8-2.4); PHOSPHOROUS 3.1 mg/dL (2.5-4.9); POTASSIUM 3.8 mmol/L (3.5-5.1); SODIUM SERUM 137 mmol/L (136-145); TOTAL PROTEIN, SERUM 6.6 g/dL (6.4-8.2); UREA NITROGEN, BLOOD 15 mg/dL (7-18)
[2023-11-30] MEDS: PROTEIN SUPPLEMENT (PROSTAT) 30 ML LIQUID PO SCH (13:50)
[2023-11-30] MEDS: CYANOCOBALAMIN 1000 MCG/ML VIAL IM SCH (13:50)
[2023-11-30 15:58] VITALS: BP 161/78; TEMP 97.8; O2SAT 98
[2023-11-30 16:42] VITALS: O2SAT 98
[2023-11-30 20:05] VITALS: BP 129/74; TEMP 98.1; O2SAT 97
[2023-12-01] VITALS (7 sets, daily range): BP systolic 131–150; BP diastolic 78–86; TEMP 97.5–98.4; O2SAT 96–99
[2023-12-01] MEDS: LEVOTHYROXINE SODIUM 25 MCG TABLET PO SCH (06:09)
[2023-12-01] MEDS: ASPIRIN 81 MG TAB.CHEW PO SCH (08:03)
[2023-12-01] MEDS: CYANOCOBALAMIN 1000 MCG/ML VIAL IM SCH (08:03)
[2023-12-01] MEDS: DOCUSATE SODIUM 250 MG CAPSULE PO SCH ×2 (08:03→22:07)
[2023-12-01] MEDS: MIRALAX 17 GM POWD.PACK PO SCH (08:03)
[2023-12-01] MEDS: PROTEIN SUPPLEMENT (PROSTAT) 30 ML LIQUID PO SCH (08:14)
[2023-12-01] MEDS: ARGININE/GLUTAMINE/CALCIUM BMB 1 EACH POWD.PACK PO SCH ×2 (08:14→16:28)
[2023-12-01] MEDS: SILVER SULFADIAZINE 1% CREAM 50 GM TP SCH (16:00)
[2023-12-01] MEDS: HYDROCODONE/APAP 5-325MG TABLET PO PRN (19:40)
[2023-12-02] MEDS: HYDROCODONE/APAP 5-325MG TABLET PO PRN ×3 (02:25→19:45)
[2023-12-02 04:00] VITALS: BP 138/82; TEMP 97.6; O2SAT 95
[2023-12-02] MEDS: LEVOTHYROXINE SODIUM 25 MCG TABLET PO SCH (06:28)
[2023-12-02 07:55] VITALS: BP 154/86; TEMP 97.6; O2SAT 99
[2023-12-02] MEDS: CYANOCOBALAMIN 1000 MCG/ML VIAL IM SCH (08:22)
[2023-12-02] MEDS: ASPIRIN 81 MG TAB.CHEW PO SCH (08:22)
[2023-12-02] MEDS: DOCUSATE SODIUM 250 MG CAPSULE PO SCH ×2 (08:23→20:22)
[2023-12-02] MEDS: MIRALAX 17 GM POWD.PACK PO SCH (08:23)
[2023-12-02] MEDS: PROTEIN SUPPLEMENT (PROSTAT) 30 ML LIQUID PO SCH (08:30)
[2023-12-02] MEDS: REMEDY ESSENTIAL ZINC PASTE 113 GM TOP PRN (08:30)
[2023-12-02] MEDS: ARGININE/GLUTAMINE/CALCIUM BMB 1 EACH POWD.PACK PO SCH ×2 (08:30→16:36)
[2023-12-02] MEDS: SILVER SULFADIAZINE 1% CREAM 50 GM TP SCH (08:31)
[2023-12-02] MEDS: ACETAMINOPHEN 325 MG TABLET PO PRN (13:51)
[2023-12-02 15:09] VITALS: BP 135/78; TEMP 98.4; O2SAT 98
[2023-12-02] MEDS: ATORVASTATIN 40 MG TABLET PO SCH (20:22)
[2023-12-02 21:47] VITALS: BP 155/74; TEMP 98.2; O2SAT 100
[2023-12-02 21:49] VITALS: BP 148/76; TEMP 98.5; O2SAT 99
[2023-12-03] MEDS: HYDROCODONE/APAP 5-325MG TABLET PO PRN ×3 (03:18→20:41)
[2023-12-03 04:36] VITALS: O2SAT 98
[2023-12-03 04:55] VITALS: BP 148/62; TEMP 98; O2SAT 99
[2023-12-03] MEDS: LEVOTHYROXINE SODIUM 25 MCG TABLET PO SCH (06:07)
[2023-12-03 08:00] VITALS: BP 160/85; TEMP 97.5; O2SAT 99
[2023-12-03] MEDS: PROTEIN SUPPLEMENT (PROSTAT) 30 ML LIQUID PO SCH (08:00)
[2023-12-03] MEDS: CYANOCOBALAMIN 1000 MCG/ML VIAL IM SCH (08:20)
[2023-12-03] MEDS: ASPIRIN 81 MG TAB.CHEW PO SCH (08:20)
[2023-12-03] MEDS: MIRALAX 17 GM POWD.PACK PO SCH (08:53)
[2023-12-03] MEDS: ARGININE/GLUTAMINE/CALCIUM BMB 1 EACH POWD.PACK PO SCH ×2 (08:53→16:27)
[2023-12-03] MEDS: DOCUSATE SODIUM 250 MG CAPSULE PO SCH ×2 (08:53→20:41)
[2023-12-03] MEDS: SILVER SULFADIAZINE 1% CREAM 50 GM TP SCH (09:07)
[2023-12-03 15:37] VITALS: BP 160/79; TEMP 98; O2SAT 97
[2023-12-03] MEDS: hydrALAZINE HCL 25 MG TABLET PO PRN (15:41)
[2023-12-03 17:20] VITALS: O2SAT 97
[2023-12-03] MEDS: ATORVASTATIN 40 MG TABLET PO SCH (20:41)
[2023-12-03 20:59] VITALS: BP 146/76; TEMP 98.2; O2SAT 97
[2023-12-04] MEDS: HYDROCODONE/APAP 5-325MG TABLET PO PRN ×5 (01:45→20:10)
[2023-12-04 05:33] VITALS: BP 143/76; TEMP 98.4; O2SAT 98
[2023-12-04] MEDS: LEVOTHYROXINE SODIUM 25 MCG TABLET PO SCH (06:13)
[2023-12-04 08:00] VITALS: BP 156/77; TEMP 97.6; O2SAT 94
[2023-12-04] MEDS: PROTEIN SUPPLEMENT (PROSTAT) 30 ML LIQUID PO SCH (08:00)
[2023-12-04 08:12] LABS: BASOPHILS # (AUTO) 0.1 K/UL (0.0-0.2); BASOPHILS % (AUTO) 0.9 % (0.0-2.0); EOSINOPHILS # (AUTO) 0.5 K/uL (0.0-0.7); EOSINOPHILS % (AUTO) 6.2 % (0.0-7.0); HEMOGLOBIN 10.6 g/dL (10.9-14.3); LYMPHOCYTES # (AUTO) 1.5 K/uL (0.8-4.8); LYMPHOCYTES % (AUTO) 19.2 % (20.5-51.5); MEAN CORPUSCULAR HEMOGLOBIN 30.9 uug (24.7-32.8); MEAN CORPUSCULAR HGB CONC 33 g/dL (32.3-35.6); MEAN CORPUSCULAR VOLUME 93.6 fL (75.5-95.3); MONOCYTES # (AUTO) 0.7 K/uL (0.1-1.30); MONOCYTES % (AUTO) 9.3 % (0.0-11.0); NEUTROPHILS # (AUTO) 5.1 K/uL (1.8-8.9); NEUTROPHILS % (AUTO) 64.4 % (38.5-71.5); PLATELET COUNT (AUTO) 466 K/uL (179-408); RED BLOOD CELL COUNT(AUTO) 3.42 MIL/uL (3.63-4.92); RED CELL DISTRIBUTION WIDTH 14.8 % (12.3-17.7)
[2023-12-04 08:29] LABS: DIFFERENTIAL COMMENT 1
[2023-12-04 08:32] LABS: ALANINE AMINOTRANSFERASE 24 U/L (14-59); ALBUMIN 2.3 g/dL (3.4-5.0); ALKALINE PHOSPHATASE 152 U/L (50-136); ASPARTATE AMINOTRANSFERASE 21 U/L (15-37); BILIRUBIN,TOTAL 0.4 mg/dL (0.2-1.0); CALCIUM 8.9 mg/dL (8.5-10.1); CARBON DIOXIDE 33 mmol/L (21-32); CHLORIDE 103 mmol/L (98-107); CHOLESTEROL 134 mg/dL (<200); CREATININE 0.9 mg/dL (0.6-1.3); GLUCOSE 111 mg/dL (74-106); HDL CHOLESTEROL 64 mg/dL (40-60); MAGNESIUM 2.2 mg/dL (1.8-2.4); PHOSPHOROUS 3.5 mg/dL (2.5-4.9); SODIUM SERUM 142 mmol/L (136-145); TOTAL PROTEIN, SERUM 6.4 g/dL (6.4-8.2); TRIGLYCERIDES 59 MG/DL (30-150); UREA NITROGEN, BLOOD 16 mg/dL (7-18)
[2023-12-04] MEDS: MIRALAX 17 GM POWD.PACK PO SCH (09:00)
[2023-12-04] MEDS: DOCUSATE SODIUM 250 MG CAPSULE PO SCH ×2 (09:00→21:07)
[2023-12-04] MEDS: ASPIRIN 81 MG TAB.CHEW PO SCH (09:26)
[2023-12-04] MEDS: ARGININE/GLUTAMINE/CALCIUM BMB 1 EACH POWD.PACK PO SCH ×2 (09:26→17:00)
[2023-12-04] MEDS: CHOLECALCIFEROL 1,000 UNIT TABLET PO SCH (09:26)
[2023-12-04] MEDS: SILVER SULFADIAZINE 1% CREAM 50 GM TP SCH (09:27)
[2023-12-04] MEDS: CYANOCOBALAMIN 1000 MCG/ML VIAL IM SCH (09:27)
[2023-12-04] MEDS: METOPROLOL TARTRATE 25 MG TABLET PO SCH ×2 (09:53→21:08)
[2023-12-04 15:39] VITALS: BP 123/60; TEMP 98.6; O2SAT 99
[2023-12-04 20:03] VITALS: BP 121/58; TEMP 98.2; O2SAT 98
[2023-12-04] MEDS: ATORVASTATIN 10 MG TABLET PO SCH (21:08)
[2023-12-05] MEDS: HYDROCODONE/APAP 5-325MG TABLET PO PRN ×5 (00:21→20:15)
[2023-12-05] MEDS: LEVOTHYROXINE SODIUM 25 MCG TABLET PO SCH (06:44)
[2023-12-05 08:00] VITALS: BP 123/74; TEMP 98.2; O2SAT 98
[2023-12-05] MEDS: ASPIRIN 81 MG TAB.CHEW PO SCH (08:23)
[2023-12-05] MEDS: DOCUSATE SODIUM 250 MG CAPSULE PO SCH ×2 (08:23→20:14)
[2023-12-05] MEDS: CYANOCOBALAMIN 1000 MCG/ML VIAL IM SCH (08:24)
[2023-12-05] MEDS: MIRALAX 17 GM POWD.PACK PO SCH (08:24)
[2023-12-05] MEDS: SILVER SULFADIAZINE 1% CREAM 50 GM TP SCH (08:24)
[2023-12-05] MEDS: CHOLECALCIFEROL 1,000 UNIT TABLET PO SCH (08:24)
[2023-12-05] MEDS: METOPROLOL TARTRATE 25 MG TABLET PO SCH ×2 (09:22→21:09)
[2023-12-05] MEDS: ARGININE/GLUTAMINE/CALCIUM BMB 1 EACH POWD.PACK PO SCH ×2 (09:22→16:40)
[2023-12-05] MEDS: PROTEIN SUPPLEMENT (PROSTAT) 30 ML LIQUID PO SCH (09:23)
[2023-12-05 16:00] VITALS: BP 130/70; TEMP 97.9; O2SAT 97
[2023-12-05] MEDS: ATORVASTATIN 10 MG TABLET PO SCH (20:14)
[2023-12-05 20:25] VITALS: BP 134/70; TEMP 97.7; O2SAT 95
[2023-12-06] MEDS: HYDROCODONE/APAP 5-325MG TABLET PO PRN ×3 (00:03→20:26)
[2023-12-06 04:22] VITALS: BP 147/73; TEMP 97.8; O2SAT 94
[2023-12-06] MEDS: LEVOTHYROXINE SODIUM 25 MCG TABLET PO SCH (06:24)
[2023-12-06 07:58] VITALS: BP 155/75; TEMP 98.2; O2SAT 87
[2023-12-06] MEDS: MIRALAX 17 GM POWD.PACK PO SCH (09:00)
[2023-12-06] MEDS: DOCUSATE SODIUM 250 MG CAPSULE PO SCH ×2 (09:00→20:59)
[2023-12-06] MEDS: ASPIRIN 81 MG TAB.CHEW PO SCH (09:00)
[2023-12-06] MEDS: CHOLECALCIFEROL 1,000 UNIT TABLET PO SCH (09:00)
[2023-12-06] MEDS: ARGININE/GLUTAMINE/CALCIUM BMB 1 EACH POWD.PACK PO SCH ×2 (09:01→16:21)
[2023-12-06] MEDS: METOPROLOL TARTRATE 25 MG TABLET PO SCH ×2 (09:01→20:59)
[2023-12-06] MEDS: PROTEIN SUPPLEMENT (PROSTAT) 30 ML LIQUID PO SCH (09:02)
[2023-12-06] MEDS: SILVER SULFADIAZINE 1% CREAM 50 GM TP SCH (09:03)
[2023-12-06] MEDS ORDERED: CLONIDINE HCL 0.1 MG TABLET PO PRN (11:15)
[2023-12-06 16:06] VITALS: BP 132/74; TEMP 98.2; O2SAT 96
[2023-12-06 20:30] VITALS: BP 151/68; TEMP 98.1; O2SAT 94
[2023-12-06] MEDS: ATORVASTATIN 10 MG TABLET PO SCH (20:59)
[2023-12-07] MEDS: ACETAMINOPHEN 325 MG TABLET PO PRN (02:41)
[2023-12-07 04:30] VITALS: BP 161/74; O2SAT 94
[2023-12-07] MEDS: hydrALAZINE HCL 25 MG TABLET PO PRN (04:40)
[2023-12-07] MEDS: HYDROCODONE/APAP 5-325MG TABLET PO PRN ×4 (04:40→20:57)
[2023-12-07 06:22] VITALS: BP 131/64; TEMP 97.7; O2SAT 94
[2023-12-07] MEDS: LEVOTHYROXINE SODIUM 25 MCG TABLET PO SCH (06:47)
[2023-12-07 07:56] VITALS: BP 154/70; TEMP 98.4; O2SAT 93
[2023-12-07] MEDS: MIRALAX 17 GM POWD.PACK PO SCH (09:00)
[2023-12-07] MEDS: ASPIRIN 81 MG TAB.CHEW PO SCH (09:14)
[2023-12-07] MEDS: CHOLECALCIFEROL 1,000 UNIT TABLET PO SCH (09:14)
[2023-12-07] MEDS: METOPROLOL TARTRATE 25 MG TABLET PO SCH ×2 (09:15→20:51)
[2023-12-07] MEDS: ARGININE/GLUTAMINE/CALCIUM BMB 1 EACH POWD.PACK PO SCH ×2 (09:18→16:10)
[2023-12-07] MEDS: DOCUSATE SODIUM 250 MG CAPSULE PO SCH ×2 (09:19→20:51)
[2023-12-07] MEDS: PROTEIN SUPPLEMENT (PROSTAT) 30 ML LIQUID PO SCH (09:20)
[2023-12-07] MEDS: SILVER SULFADIAZINE 1% CREAM 50 GM TP SCH (09:21)
[2023-12-07 15:30] VITALS: BP 152/60; TEMP 98.2; O2SAT 96
[2023-12-07 20:00] VITALS: BP 128/71; TEMP 99.1; O2SAT 94
[2023-12-07] MEDS: ATORVASTATIN 10 MG TABLET PO SCH (20:50)
[2023-12-08] MEDS: ACETAMINOPHEN 325 MG TABLET PO PRN
[2023-12-08] MEDS: REMEDY ESSENTIAL ZINC PASTE 113 GM TOP PRN (01:04)
[2023-12-08] MEDS: HYDROCODONE/APAP 5-325MG TABLET PO PRN ×3 (01:17→13:31)
[2023-12-08 04:00] VITALS: BP 148/73; TEMP 98.4; O2SAT 94
[2023-12-08] MEDS: LEVOTHYROXINE SODIUM 25 MCG TABLET PO SCH (06:04)
[2023-12-08 07:36] VITALS: BP 155/87; TEMP 98.4; O2SAT 92
[2023-12-08] MEDS: PROTEIN SUPPLEMENT (PROSTAT) 30 ML LIQUID PO SCH (08:00)
[2023-12-08] MEDS: DOCUSATE SODIUM 250 MG CAPSULE PO SCH (08:35)
[2023-12-08] MEDS: ASPIRIN 81 MG TAB.CHEW PO SCH (08:35)
[2023-12-08] MEDS: CHOLECALCIFEROL 1,000 UNIT TABLET PO SCH (08:35)
[2023-12-08] MEDS: MIRALAX 17 GM POWD.PACK PO SCH (08:35)
[2023-12-08] MEDS: METOPROLOL TARTRATE 25 MG TABLET PO SCH (08:36)
[2023-12-08] MEDS: ARGININE/GLUTAMINE/CALCIUM BMB 1 EACH POWD.PACK PO SCH (08:56)
[2023-12-08] MEDS: SILVER SULFADIAZINE 1% CREAM 50 GM TP SCH (09:52)
[2023-12-08] MEDS ORDERED: CLONIDINE HCL 0.1 MG TABLET PO PRN (11:15)
[2023-12-08] MEDS: hydrALAZINE HCL 25 MG TABLET PO PRN (12:28)
[2023-12-08 15:25] VITALS: BP 143/68; TEMP 98.2; O2SAT 95
== END 2023-12-08 15:30 | DRG 559 ==
LOC: SRC 20:05
PROVIDERS: ADMIT Physical Medicine & Rehabilitation Pain Medicine; ATTEND Physical Medicine & Rehabilitation Pain Medicine
DX: S72.141D Displaced intertrochanteric fracture of right femur, subsequent encounter for closed fracture with routine healing (principal); E43 Unspecified severe protein-calorie malnutrition; N17.0 Acute kidney failure with tubular necrosis; E44.0 Moderate protein-calorie malnutrition; I69.351 Hemiplegia and hemiparesis following cerebral infarction affecting right dominant side; D68.59 Other primary thrombophilia; W19.XXXD Unspecified fall, subsequent encounter; D72.829 Elevated white blood cell count, unspecified; Z68.35 Body mass index [BMI] 35.0-35.9, adult; E66.9 Obesity, unspecified; D50.9 Iron deficiency anemia, unspecified; D69.6 Thrombocytopenia, unspecified; E03.9 Hypothyroidism, unspecified; E53.8 Deficiency of other specified B group vitamins; E55.9 Vitamin D deficiency, unspecified; E78.5 Hyperlipidemia, unspecified; E88.09 Other disorders of plasma-protein metabolism, not elsewhere classified; I10 Essential (primary) hypertension; I69.322 Dysarthria following cerebral infarction; S70.321A Blister (nonthermal), right thigh, initial encounter; X58.XXXA Exposure to other specified factors, initial encounter; Y93.9 Activity, unspecified; Y92.89 Other specified places as the place of occurrence of the external cause
CPT/HCPCS: 36415; 73502; 82652; 83550; 83735; 84100; 84443; 85025; 97535-GO-CO; A6209; A6213; C1758; J3420